=== PATIENT | male | born 1970 | race Caucasian/White ===

== ENCOUNTER 2023-07-01 07:43 | Outpatient (OUT) | payer BC, SELFPAY ==
[2023-07-01 08:08] LABS: Bilirubin Urine NEGATIVE (NEGATIVE); Blood Urine NEGATIVE (NEGATIVE); Clarity Urine CLEAR (CLEAR); Color Urine YELLOW (YELLOW); Glucose Urine UA NEGATIVE (NEGATIVE); Ketones Urine NEGATIVE (NEGATIVE); Leukocyte Esterase Urine NEGATIVE (NEGATIVE); Nitrite Urine NEGATIVE (NEGATIVE); Protein Urine NEGATIVE (NEG/TRACE); Specific Gravity Urine >=1.030 (1.005-1.025); Urobilinogen Urine 0.2 EU/dL (0.2-1.0)
[2023-07-01 08:11] LABS: Basophils Absolute Auto 0.1 10^3/uL (0.0-0.1); Basophils Percent Auto 0.9 % (0.2-2.0); Eosinophils Absolute Auto 0.2 10^3/uL (0.0-0.7); Eosinophils Percent Auto 2.6 % (0.9-7.0); Hematocrit 47.6 % (42.0-54.0); Hemoglobin 15.4 g/dL (14.0-18.0); Immature Granulocytes Abs Auto 0.14 10^3/uL (0.00-0.03); Immature Granulocytes Pct Auto 2.5 % (0.0-0.5); Lymphocytes Absolute Auto 1.9 10^3/uL (1.2-3.8); Lymphocytes Percent Auto 34.2 % (20.5-60.0); Mean Corpuscular HGB Conc 32.4 g/dL (29.9-35.2); Mean Corpuscular Hemoglobin 29.9 pg (25.9-34.0); Mean Corpuscular Volume 92.4 fL (80.0-94.0); Mean Platelet Volume 9.6 fL (9.5-13.5); Monocytes Absolute Auto 0.5 10^3/uL (0.3-0.8); Monocytes Percent Auto 8.8 % (1.7-12.0); Neutrophils Absolute Auto 2.9 10^3/uL (1.4-6.5); Platelet Count 219 10^3/uL (150-450); Red Blood Count 5.15 10^6/uL (4.70-6.10); Red Cell Distribution Width 13.3 % (11.0-15.0); White Blood Count 5.7 10^3/uL (4.0-11.0)
[2023-07-01 08:56] LABS: Urine Microscopic Indicated NO
[2023-07-01 09:37] LABS: Alanine Aminotransferase 36 U/L (16-63); Albumin Level 3.5 g/dL (3.4-5.0); Alkaline Phosphatase 90 U/L (46-116); Anion Gap 10.4; Aspartate Amino Transferase 17 U/L (15-37); BUN Creatinine Ratio 8.9; Bilirubin Total 0.5 mg/dL (0.2-1.0); Calcium 9.3 mg/dL (8.5-10.1); Carbon Dioxide 28.6 mmol/L (21.0-32.0); Chloride 106 mmol/L (98-107); Chol HDL Ratio 5.4; Cholesterol 233 mg/dL (<=200); Estimated GFR (African America >60 (>=60); Estimated GFR (Non-African Ame >60 (>=60); Globulin 3.4 g/dL; Glucose 98 mg/dL (74-106); HDL Cholesterol 43 mg/dL (40-60); Sodium 141 mmol/L (136-145); Thyroid Stimulating Hormone 1.928 uIU/mL (0.358-3.740); Total Protein 6.9 g/dL (6.4-8.2); Triglycerides 132 mg/dL (<=150); VLDL CHOLESTEROL 26.4 mg/dL
[2023-07-01 09:38] LABS: Free T4 0.85 ng/dL (0.76-1.46)
[2023-07-01 10:45] LABS: Prostate Specific Antigen Scrn 1.03 ng/mL (<=4.00)
== END 2023-07-01 07:44 | disposition home or self-care (01) ==
LOC: LAB 07:46
PROVIDERS: PCP Nurse Practitioner; Visit Provider Nurse Practitioner
DX: Z00.00 Encounter for general adult medical examination without abnormal findings (principal); Z12.5 Encounter for screening for malignant neoplasm of prostate
CPT/HCPCS: 36415; 80053; 80061; 81003; 84439; 84443; 85025; G0103

== ENCOUNTER 2023-08-17 11:08 | Outpatient (OUT) | payer BC, SELFPAY ==
--- OUTSIDE RECORDS SUMMARY | 2023-08-17 11:11 | XMS_ITS ---
Patient Summarization (C-CDA 2.1 CCD) Created on: August 17, 2023 DONA VELEZ : 1970 Sex: Male Author Organization Sample organization Care Team Providers Care Circular Sawyer Helper Name Role Phone Rayray Mitchell Admitting Unavailable Paula, Rayray Attending Unavailable John Arzate Primary Care Unavailable Paula, Rayray Admitting Unavailable Mitchell, Rayray Attending Unavailable Huey, John Primary Care Unavailable Ning Candelario Unavailable REQUEST, DR NONE LISTED Primary Care Unavaila justine ARRINGTON, DR HORTENSIA Thompson Consulting Unavailable MAURICIO, CALI Attending Unavailable MAURICIO, CALI Admitting Unavailable MAURICIOCALI DUMONT Consulting Unavailable AICHFLORA, KATHIA Attending Unavailable AICHFLORA, KATHIA Attending Unavailable RUCHI CHRISTINE Attending Unavailable Allergies Allergy Classification Reported Allergen(s) Allergy Type Date of Onset Reaction(s) Facility (1 source) levoFLOXacin Drug Allergy 9 [facility] Repository (1 source) Meperidine Drug Allergy vomiting [facility] Other (1 source) levoFLOXacin Drug Allergy [facility] Repository Encounters Encounter Date Encounter Type Care Provider Facility Start: 07-28-2023 End: 07-28-2023 ambulatory RUCHI CHRISTINE Not Available Start: 07-27-2023 End: 07-27-2023 ambulatory KATHIA AICHHOLZ Not Available Start: 06-30-2023 End: 06-30-2023 ambulatory KATHIA AICHHOLZ Not Available Start: 05-27-2022 End: 05-28-2022 ambulatory NONE LISTED REQUEST Facility: Start: 02-18-2021 End: 02-18-2021 ambulatory Ning Candelario Other [facility] Other Start: 02-18-2021 Office outpatient visit 15 minutes Ning Candelario [facility] [place] Start: 05-05-2018 End: 05-05-2018 Patient encounter procedure Rayray Mitchell Facility:[facility] Start: 04-19-2018 End: 04-19-2018 Patient encounter procedure Rayray Mitchell Facility:[facility] Medications Current Medications Medication Drug Class(es) Dates Sig (Normalized) Sig (Original) Esomeprazole (1 source) Proton Pump Inhibitor NexIUM Active methylPREDNISolone 4 mg oral tablet (1 source) Corticosteroid Start: methylPREDNISolone 4 MG as directed Orally Once a day for 6 days Jan, Active Payers Date Payer Category Payer Unknown [id number] 2018 Unknown [id number] 1970 Unknown [id number] 2.16.84 [id number] 1970 Unknown [id number] 2.16.84 [id number] 1970 Unknown [id number] 2.16.84 [id number] 1959 Self-pay [facility] [id number] Unknown [id number] Unknown [id number] Unknown [id number] 2.16.84 [id number] Problems Active Problems Problem Classification Problem Date Documented Da te Episodic/Chronic Administrative/social admission (4 sources) Encounter for pre-employment examination; Translations: [ENCOUNTER FOR PRE-EMPLOYMENT EXAM] Onset: 05-27-2022 Episodic Unclassified (1 source) N20.1 - Calculus of ureter; Translations: [N20.1 - Calculus of ureter] Onset: 04-19-2018 Past or Other Problems Problem Classification Problem Date Documented Da te Episodic/Chronic Chronic obstructive pulmonary disease and bronchiectasis (1 source) Bronchitis, not specified as acute or chronic Onset: 02-18-2021 Resolved: 02-18-2021 Episodic Immunizations and screening for infectious disease (1 source) Contact with and (suspected) exposure to other viral communicable diseases Onset: 02-18-2021 Resolved: 02-18-2021 Episodic Viral infection (1 source) COVID-19 Onset: 02-18-2021 Resolved: 02-18-2021 Results Test Name Value Interpretation Reference Range Facil ity XR CHEST 2 Von 05-27-2022 XR CHEST 2 V EXAMINATION: XR CHES T 2 V HISTORY: Pre-employment screening COMPARISON: No relevant comparison available. TECHNIQUE: PA and lateral FINDINGS: LUNGS: No significant pulmonary parenchymal abnormalities. VASCULATURE: No increased pulmonary vasculature. PLEURA: No pneumothorax, effusion, or pleural thickening. CARDIAC: No cardiomegaly or cardiac silhouette abnormality. MEDIASTINUM: No visible mass or adenopathy. BONES: No fracture or visible bone lesion. OTHER: Negative. IMPRESSION: No acute disease. Electronically authenticated by: HORTENSIA ARRINGTON Date: 2022-05-27 14:12 Normal [facility] Calculi, Urinaryon 9 Ca Oxalate Dihydrate 30 % Normal . [facility] Comment on above: Performed By: #### C ALCULI #### [facility] , Ca Oxalate Monohydrate 65 % Normal . [facility] Comment on above: Performed By: #### C ALCULI #### [facility] , Calcium Phosphate 05 % Normal . [facility] Comment on above: Performed By: #### C ALCULI #### [facility] , Color Nom (U) Bautista Normal . [facility] Comment on above: Performed By: #### C ALCULI #### [facility] , Comment2 Note: Normal . [facility] Comment on above: Result Comment: Plea se do not submit specimens on Q-Tips, in tape, on filters, or in liquids such as blood, urine or formalin. This may cause unnecessary biohazards, erroneous results and/or delay in the processing of the specimen. Performed By: #### C ALCULI #### [facility] , Comment: Normal . [facility] Comment on above: Result Comment: Phys mitra questions regarding Calculi Analysis contact [facility] at: [phone]. Performed By: #### C ALCULI #### [facility] , Composition Normal . [facility] Comment on above: Result Comment: Perc entage (Represents the % composition) Performed By: #### C ALCULI #### [facility] , Nidus No Nidus visualized Normal . [facility] Comment on above: Performed By: #### C ALCULI #### [facility] , Note Normal . [facility] Comment on above: Result Comment: This test was developed and its performance characteristics determined by [facility]. It has not been cleared or approved by the Food and Drug Administration. Performed at: [address] [id number] Customer Pricing Manager: Rebecca Salas MD, Phone: [phone] PERFORMED BY: [place] [id number] PATHOLOGIST SHOP TAILOR APPRENTICE ALESSANDRO FUENTES M.D. Performed By: #### C ALCULI #### [facility] , Result Comment: Calc amy report with photograph will follow via computer, mail or roller hand delivery. Photo Normal . [facility] Comment on above: Result Comment: Phot ograph will follow under separate cover. Performed By: #### C ALCULI #### [facility] , Size Normal . [facility] Comment on above: Result Comment: Spec imen received as fragments. Performed By: #### C ALCULI #### [facility] , ECG 12 lead ECGon 04-19-2018 ECG 12 lead ECG [facility] Main [address] [address] Electrocardiograph Report Signed Patient: Dona Velez JR MR#: [id number] : 1970 Acct:[id number] Age/Sex: 47 / M ADM Date: 04/19/18 Loc: IN Room: Type: [facility] Attending Dr: Rayray Mitchell MD Ordering Provider: Rajesh Valderrama DO Date of Service: 04/19/18 ECG/ECG 12 lead ECG: preop Copies to: Test Reason : Blood Pressure : / mmHG Vent. Rate : 058 BPM Atrial Rate : 058 BPM P-R Int : 142 ms QRS Dur : 094 ms QT Int : 394 ms P-R-T Axes : 054 063 048 degrees QTc Int : 386 ms Sinus bradycardia Otherwise normal ECG No previous ECGs available Confirmed by AMBER CASTRO MD ([id number]) on 04/19/2018 1:13:52 PM Referred By: Electronically Signed By:AMBER CASTRO MD Transcribed By: MUS Dictated By: Amber Castro MD 04/19/18 1007 Signed By: 04/19/18 1313 [facility] Matt 04-19-2018 L - -------- Specimen: [id number] Received: 04/20/18 Status: TERRI Greenduarte Num: [id number] Spec Type: Surgical Subm Dr: Rayray Mitchell MD Tissues: A Urinary Calculus (KID STONE) Procedures: Level 1 Gross -------- Patient Age/Sex Location Account Attending Physician -------- AgustinDona fontana 47/M [place] [id number] Rayray Mitchell MD -------- SPEC NUM: [id number] RECD: 04/20/18 STATUS: TERRI LISA NUM: [id number] MICHELLE: 04/19/18 [facility] DR: Rayray Mitchell MD ENTERED: 04/20/[address] [facility] [address]: DANNY TYPE: Surgical DEPT: S ENTERED BY: [id number] RECV BY: [id number] ORDERED: Level 1 Gross ORDERED: Level 1 Gross Pathological Diagnosis Kidney stone, extraction: Consistent with calculi (see gross description). Specimen Clinical Information Left kidney stone; cysto, retro, laser, stent Gross Received fresh, labeled with the patient's name, number, and kidney stones are multiple bautista stone fragments ranging from less than 0.1 to 0.4 cm. No sections are submitted for microscopic evaluation. Gross exam only. The specimen is sent for stone analysis. (AUGUSTO/CHRISTINA/mery) Microscopic Gross exam only. 366[address] A. Urinary Calculu - KID STONE -------- -------- Specimen: [id number] Received: 04/20/18 Status: TERRI Lisa Num: [id number] Spec Type: Surgical Subm Dr: Rayray Mitchell MD Tissues: A Urinary Calculus (KID STONE) Procedures: Level 1 Gross -------- Patient: Dona Velez JR [id number] (Continued) -------- Signed (signature on file) Alessandro Fuentes MD 04/21/18 0947 [facility] Coding Summary.on 12-01-2017 Coding Summary. CODING DATE: 12/01/2017 [facility] STATUS: Home (Routine DC) PAYOR: [facility] [place] [facility] DESCRIPTION 5373 Level 3 Urology and Related Services ADMIT DX: REASON FOR VISIT DX: Z46.6 Encounter for fitting and adjustment of urinary device FINAL DX: PRINCIPAL: Z46.6 Encounter for fitting and adjustment of urinary device SECONDARY: Z87.442 Personal history of urinary calculi PYMT PROC APC STAT DESCRIPTION DOCTOR NAME DATE NOTE: The code number assigned matches the documented diagnosis and / or procedure in the patient's chart. However, the narrative phrase printed from the coding software may appear abbreviated, or result in slightly different terminology. Coded By: Saba Burrows Date Saved: 12/01/2017 01:45 pm [facility] Main OR Intraoperative Recor don 11-30-2017 Main OR Intraoperative Record IntraOp Document Type FTURO Summary Primary Physician: Rayray Mitchell MD Finalized Date/Time: 11/30/17 07:35:59 Pt. Name: DONA VELEZ Jr Dragan Stewart/Sex: 1970 Male Med Rec #: [id number] Physician: Rayray Mitchell MD Financial #: [id number] Pt. Type: O Room/Bed: / Admit/Disch: 11/30/17 06:54:27 - Institution: Case Times FTURO Entry 1 Patient Times In Room 11/30/17 07:25:00 Out Room 11/30/17 07:39:00 Procedure Times Start 11/30/17 07:30:00 Stop 11/30/17 07:37:00 Anesthesia Times Last Modified By: Jessica MCGOVERN, Irlanda LEROY 11/30/17 07:35:33 Case Attendance FTURO Entry 1 Entry 2 Entry 3 Case Attendee Paula GONZALES, Rayray Lopez RN, PATRICIAOR, Christianne MARCELINO, Linnea Fournier Role Performed Surgeon - Primary Bar Manager - Primary Scrub - Primary Time In 11/30/17 07:25:00 11/30/17 07:25:00 11/30/17 07:25:00 Time Out 11/30/17 07:39:00 11/30/17 07:39:00 11/30/17 07:39:00 Procedure CYSTOSCOPY LOCAL WITH CYSTOSCOPY LOCAL WITH CYSTOSCOPY LOCAL WITH STENT REMOVAL(Right) STENT REMOVAL(Right) STENT REMOVAL(Right) Comments Last Modified By: Jessica RN, CNOR, Jessica RN, PATRICIAOR, Jessica RN, PATRICIAOR, Irlanda 11/30/17 Irlanda 11/30/17 Irlanda 11/30/17 07:35:35 07:35:35 07:35:35 Surgical Procedures FTURO Entry 1 Procedure Description Procedure CYSTOSCOPY LOCAL WITH Modifiers Right STENT REMOVAL Surgeon Description CYSTO RIGHT STENT REMOVAL Primary Procedure Yes Primary Surgeon Rayray Mitchell MD Start 11/30/17 07:30:00 Stop 11/30/17 07:37:00 Anesthesia Type Local Surgical Service Urology Wound Class 2 - Clean-Contaminated Last Modified By: Jessica MCGOVERN, PATRICIAORIrlanda 11/30/17 07:35:37 General Case Data FTURO Pre-Care Text: Classifies surgical wound, implements aseptic technique, initiates traffic control Entry 1 Case Information OR URO 1 FT Case Level None Wound Class 2 - Clean-Contaminated Specialty Urology Preop Diagnosis S/P RIGHT STENT Postop Same As Preop Yes PLACEMENT Postop Diagnosis S/P RIGHT STENT Outcomes Met? Yes PLACEMENT Last Modified By: RAD Lopez RN, Ruthann 11/30/17 06:48:46 Post-Care Text: The patient is free from signs and symptoms of infection EU IntraOp - FTURO Pre-Care Text: Implements protective measures prior to operative or invasive procedure, confirms identity before the operative or invasive procedure, verifies operative procedure, surgical site, and laterality Entry 1 EU Perioperative Protocols Procedure(s) CYSTOSCOPY LOCAL WITH Patient Identity Birthday, ID Band STENT REMOVAL(Right) Verified (select at Check, Patient least 2): Participation Consents / H and P HandP, Surgery/Procedure Operative Site N/A Verified Consent Marking Verified Surgical Site Yes Laterality Verified Yes Verified Procedure Verified Yes Correct Patient Yes Position Verified Availability Equipment, Medication Time Out Rayray Mitchell MD, Verified (If Participants Jessica MCGOVERN, RAD, Applicable) Christianne Fournier CST, Linnea Time Out Complete 11/30/17 07:29:00 Allergies Reviewed? Yes Allergies Reviewed Self/Patient With Body Position Supine Prep Area penis Prep Agents Betadine Solution Skin. Condition Unable to Visualize Additional None Specimens Collected Vitals - EU Blood Pressure Pulse Respirations SPO2 EBL 0 IandO - EU Total Intake 0 mL Total Output 0 mL Outcomes Met? Yes Last Modified By: RAD Lopez RN, Ruthann 11/30/17 07:35:18 Post-Care Text: The patient is free from signs and symptoms of injury caused by extraneous objects Case Comments Finalized By: RAD Lopez RN, Ruthann Document Signatures Signed By: RAD Lopez RN, Ruthann 11/30/17 07:35 RAD Lopez RN, Ruthann 11/30/17 07:35 Normal [facility] Main OR Preoperative Recordo n 11-30-2017 Main OR Preoperative Record Holding Area Document Type FTURO Summary Primary Physician: Rayray Mitchell MD Finalized Date/Time: 11/30/17 07:34:39 Pt. Name: DONA VELEZ Jr /Sex: 1970 Male Med Rec #: [id number] Physician: Rayray Mitchell MD Financial #: [id number] Pt. Type: O Room/Bed: / Admit/Disch: 11/30/17 06:54:27 - Institution: Case Times Holding FTURO Pre-Care Text: Verifies consent for planned procedure, identifies individual values and wishes concerning care, includes family members in perioperative teaching Secures patient's records' belongings, and valuables, maintains patient's dignity and privacy, and maintains patient confidentiality Entry 1 In Holding 11/30/17 07:13:00 Outcomes Met? Yes Last Modified By: Mickie Malave LPN 11/30/17 07:13:21 Post-Care Text: The patient participates in decisions affecting his or her perioperative plan of care The patient's right to privacy is maintained Surgery Checklist FTURO Entry 1 Patient Birthday, ID Band Procedure History and Physical, Identification: Check, Patient Verification: Surgical Consent, With Participation Patient NPO after Midnight: n/a Personal Items: Jewelry Personal Items wedding ring, chain Complaints of Pain: Yes Comment: Pain Comment: left flank 03/03 Skin Integrity Intact, [place], Warm, & Dry Vitals - EU Blood Pressure 141/92 Pulse 66 bpm Respirations 16 br/min SPO2 RN Reviewed Yes Last Modified By: RAD Lopez RN, Ruthann 11/30/17 07:34:35 Finalized By: RAD Lopez RN, Ruthann Document Signatures Signed By: Mickie Malave LPN 11/30/17 07:16 RAD Lopez RN, Ruthann 11/30/17 07:34 Normal [facility] Operative Reporton 8 Operative Report Patient: DONA VELEZ Jr Age: 46 years Sex: Male : 1970 Associated Diagnoses: None Author: Rayray Mitchell MD Procedure Operative Information Details: Date/ Time: 11/30/17 07:37:00. Pre-Op Dx: Foreign Body in Bladder - T19.1XXA. Post-Op Dx: Same. Anesthesia Type: Local. Procedure: Local Cystoscopy with Stent Removal. Complications: None. Risks/Benefits/Inform ed Consent: Surgical risks, benefits, details of the procedure have been explained to the patient, Full informed consent has been obtained. Intraoperative Information Prepped: The patient was placed in supine position, The patient was prepped with the Betadine solution. Anesthesia: 2% Xylocaine Jelly per urethra. Procedure: Cystoscopy and Right Stent Removal, The flexible Cystoscope was passed in retrograde fashion into the bladder without difficulty, The bladder was viewed in entirety and found to be without tumors or stones, Mild inflammation was seen surrounding the orifice with the stent seen protruding from it, The stent was then grasped and removed in its entirety. Specimens Removed: None. Devices Implanted: None. Postoperative Information Discharge: The patient tolerated the procedure well and was subsequently discharged home. [facility] Comment on above: Result Comment: Elec tronically Signed By: Paula GONZALES, Rayray Israel.br\Date and Time Signed: 11/30/17 07:38 EDT Social History Date Type Detail Facility Unknown if ever smoked [facility] Other Sex Assigned At Sex Assigned At Bir th [facility] Other Vital Signs Date Time Vital Sign Value Performing Clinician Facility 02-18-2021 11:00-0500 Body height 185.42 cm Ning Candelario Other [facility] Other 02-18-2021 11:00-0500 Body mass index (BMI) [Ratio] 32.98 kg/m2 Ning Bartlettault Other [facility] Other 02-18-2021 11:00-0500 Body temperature 97.4 [degF] Ning Bartlettault Other [facility] Other 02-18-2021 11:00-0500 Body weight 113.4 kg Ning Bartlettault Other [facility] Other 12-28-2021 11:00-0500 SaO2% (BldA) [Mass fraction] 97 % Ning Candelario Other [facility] Other 04-19-2018 17:00-0500 Body weight Measured 14.4 Rayray [facility] Comment on above: Performed By: #### CALCULI #### [facility] , Evaluation note 02-18-2021 Note Date & Type Note Facility 02-18-2021 Evaluation note Encounter Date Diagnosis Assessment Notes Jan, Contact with and (suspected) exposure to other viral communicable diseases (ICD-10 - Z20.828) Jan, COVID-19 (ICD-10 - U07.1) Today you tested positive for the COVID virus. This mean you need to follow all CDC quarantine guidelines found at coronavirus.[place].gov. It is important to rest, increase fluids, and stay at home. Contact PCP and inform them of results. Medications like Mucinex, Cepacol, Tylenol, saline nasal spray are over the counter medications that can help with the symptoms. Current guidelines include staying home for at least 10 days, having no fever above 100.4 for 24 hours without medication and having significant improvement of symptoms before you are allowed to stop your quarantine. Contact primary care and ask for guidance is essential to follow up * EDUCATION HANDOUT GIVEN ON OTC TREATMENTS, FOLLOW UP AND WHEN TO SEEK EMERGENCY TREATMENT Jan, Bronchitis (ICD-10 - J40) Jan, Other Additional time spent conducting pre-visit phone call, screening for symptoms, instructions on social distancing, application and removal of PPE, and cleaning of examination room, equipment and supplies was preformed. Patient education given for testing methodology and results. Patient care instructions given in writting by [facility] At Home document. [facility] Other History general Narrative - Reported Note Date & Type Note Facility History general Narrative - Reported Type Medical History GERD [facility] Other Summary Purpose Family History No Family History Records FoundNo Family History Records FoundNo Family History Records FoundNo Family History Records Found Advance Directives No Advanced Directives Records FoundNo Advanced Directives Records FoundNo Advanced Directives Records FoundNo Advanced Directives Records Found Additional Source Comments (unrecognized sect ion and content) No Status Records FoundNo Status Records FoundNo Status Records FoundNo Status Records Found INFORMATION SOURCE (unrecogn ized section and content) DATE CREATED AUTHOR 05/19/2018 [facility] DATE CREATED AUTHOR AUTHOR'S ORGANIZ ATION 11/26/2018 [facility] DATE CREATED AUTHOR AUTHOR'S ORGANIZ ATION 06/06/2022 [facility] DATE CREATED AUTHOR AUTHOR'S ORGANIZ ATION 07/28/2023 [facility] dical Specialists EPIC REASON FOR VISIT (unrecogniz ed section and content) #5 BLACK CLARENCE FEVER, FATIGUE, SINUS CONGESTION, COVID Provider Visit FOR RECORDS PERTAINING TO PATIENTS WHO ARE OR HAVE BEEN ENROLLED IN A CHEMICAL DEPENDENCY/SUBSTANCEABUSE PROGRAM, SOME INFORMATION MAY BE OMITTED. This clinical summary was aggregated from multiple sources. Caution should be exercised in using it in the provision of clinical care. This summary normalizes information from multiple sources, and as a consequence, information in this document may materially change the coding, format and clinical context of patient data. In addition, data may be omitted in some cases. CLINICAL DECISIONS SHOULD BE BASED ON THE PRIMARY CLINICAL RECORDS. [facility] [employer] [facility]. provides no warranty or guarantee of the accuracy or completeness of information in this document.
== END 2023-08-17 11:09 | disposition home or self-care (01) ==
LOC: PST 11:08
PROVIDERS: PCP Nurse Practitioner; Visit Provider Surgery
DX: Z01.818 Encounter for other preprocedural examination (principal); Z12.11 Encounter for screening for malignant neoplasm of colon

== ENCOUNTER 2023-08-24 06:42 | Day surgery (SDC) | payer BC, SELFPAY ==
[2023-08-24] VITALS (7 sets, daily range): BP systolic 107–141; BP diastolic 62–90; PULSE 55–82; TEMP 36.3–36.4; O2SAT 94–98; BMI 32.9
--- OUTSIDE RECORDS SUMMARY | 2023-08-24 06:46 | XMS_ITS ---
Patient Summarization (C-CDA 2.1 CCD) Created on: August 24, 2023 DONA VELEZ : 1970 Sex: Male Author Organization Sample organization Care Team Providers Care Ribbon Winder Name Role Phone Rayray Mitchell Admitting Unavailable Paula, Rayray Attending Unavailable John Arzate Primary Care Unavailable Paula, Rayray Admitting Unavailable Imtchell, Rayray Attending Unavailable Huey, John Primary Care [...] Facility (1 source) levoFLOXacin Drug Allergy 9 [facility] Repository (1 source) Meperidine Drug Allergy vomiting [facility] Other (1 source) levoFLOXacin Drug Allergy [facility] Repository Encounters Encounter Date Encounter Type Care Provider Facility Start: 07-28-2023 End: 07-28-2023 ambulatory RUCHI CHRISTINE Not Available Start: 07-27-2023 End: 07-27-2023 ambulatory KATHIA AICHHOLZ Not Available Start: 06-30-2023 End: 06-30-2023 ambulatory KATHIA AICHHOLZ Not Available Start: 05-27-2022 End: 05-28-2022 ambulatory NONE LISTED REQUEST Facility: Start: 02-18-2021 End: 02-18-2021 ambulatory Ning Candelario Other [facility] Other Start: 02-18-2021 Office outpatient visit 15 minutes iNng Candelario [facility] [place] Start: 05-05-2018 End: 05-05-2018 Patient encounter procedure Rayray Mitchell Facility:[facility] Start: 04-19-2018 End: 04-19-2018 Patient encounter procedure Rayray Mitchell Facility:[facility] Medications Current Medications Medication Drug Class(es) Dates Sig (Normalized) Sig (Original) Esomeprazole (1 source) Proton Pump Inhibitor NexIUM Active methylPREDNISolone 4 mg oral tablet (1 source) Corticosteroid Start: methylPREDNISolone 4 MG as directed Orally Once a day for 6 days Jan, Active Payers Date Payer Category Payer Unknown [id number] 2018 Unknown [id number] 1970 Unknown [id number] 2.16.84 [id number] 1970 Unknown [id number] 2.16.84 [id number] 1970 Unknown [id number] 2.16.84 [id number] 1959 Self-pay [facility] [id number] Unknown [id number] Unknown [id number] Unknown [id number] 2.16.84 [id number] Problems Active Problems Problem Classification Problem Date [...] [place] Date: 2022-05-27 14:12 Normal [facility] Calculi, Urinaryon 9 Ca Oxalate Dihydrate 30 % Normal . [facility] Comment on above: Performed By: #### C ALCULI #### [facility] , Ca Oxalate Monohydrate 65 % Normal . [facility] Comment on above: Performed By: #### C ALCULI #### [facility] , Calcium Phosphate 05 % Normal . [facility] Comment on above: Performed By: #### C ALCULI #### [facility] , Color Nom (U) Bautista Normal . [facility] Comment on above: Performed By: #### C ALCULI #### [facility] , Comment2 Note: Normal . [facility] Comment on above: Result Comment: Plea se do not submit specimens on Q-Tips, in tape, on filters, or in liquids such as blood, urine or formalin. This may cause unnecessary biohazards, erroneous results and/or delay in the processing of the specimen. Performed By: #### C ALCULI #### [facility] , Comment: Normal . [facility] Comment on above: Result Comment: Phys mitra questions regarding Calculi Analysis contact [facility] at: [phone]. Performed By: #### C ALCULI #### [facility] , Composition Normal . [facility] Comment on above: Result Comment: Perc entage (Represents the % composition) Performed By: #### C ALCULI #### [facility] , Nidus No Nidus visualized Normal . [facility] Comment on above: Performed By: #### C ALCULI #### [facility] , Note Normal . [facility] Comment on above: Result Comment: This test was developed and its performance characteristics determined by [facility]. It has not been cleared or approved by the Food and Drug Administration. Performed at: [address] [id number] [employer] Pourer: Rebecca Salas MD, Phone: [phone] PERFORMED BY: [place]A [place] [id number] PATHOLOGIST TECHNICAL STAFF ENGINEER ALESSANDRO FUENTES M.D. Performed By: #### C ALCULI #### [facility] , Result Comment: Calc amy report with photograph will follow via computer, mail or fur matcher delivery. Photo Normal . [facility] Comment on above: Result Comment: Phot ograph will follow under separate cover. Performed By: #### C ALCULI #### [facility] , Size Normal . [facility] Comment on above: Result Comment: Spec imen received as fragments. Performed By: #### C ALCULI #### [facility] , ECG 12 lead ECGon 04-19-2018 ECG 12 lead ECG [facility] Main [address] [address] Electrocardiograph Report Signed Patient: Dona Velez JR MR#: [id number] : 1970 Acct:[id number] Age/Sex: 47 / M ADM Date: 04/19/18 Loc: [place] Room: Type: [facility] Attending Dr: Rayray Mitchell MD Ordering Provider: [...] MD 04/19/18 1007 Signed By: 04/19/18 1313 [facility] Matt 04-19-2018 L - -------- Specimen: [id number] Received: 04/20/18 Status: TERRI Greenduarte Num: [id number] Spec Type: Surgical Subm Dr: Rayray Mitchell MD Tissues: A Urinary Calculus (KID STONE) Procedures: Level 1 Gross -------- Patient Age/Sex Location Account Attending Physician -------- AgustinDona fontana 47/M [place] [id number] Rayray Mitchell MD -------- SPEC NUM: [id number] RECD: 04/20/18 STATUS: TERRI LISA NUM: [id number] MICHELLE: 04/19/[address] [facility] [address]: Rayray Mitchell MD ENTERED: 04/20/[address] [facility] [address]: DANNY TYPE: Surgical DEPT: S ENTERED BY: [id number] RECV BY: [id number] ORDERED: Level 1 Gross ORDERED: Level 1 [...] stone analysis. (AUGUSTO/CHRISTINA/mery) Microscopic Gross exam only. [address] A. Urinary Calculu - KID STONE -------- -------- Specimen: [id number] Received: 04/20/18 Status: TERRI Lisa Num: [id number] Spec Type: Surgical Subm Dr: Rayray Mitchell MD Tissues: A Urinary Calculus (KID STONE) Procedures: Level 1 Gross -------- Patient: Dona Velez JR [id number] (Continued) -------- Signed (signature on file) Alessandro Fuentes MD 04/21/18 0947 [facility] Coding Summary.on 12-01-2017 Coding Summary. CODING DATE: 12/01/2017 [facility] STATUS: Home (Routine DC) PAYOR: [facility] DESCRIPTION 5373 Level 3 Urology and [...] Saba Burrows Date Saved: 12/01/2017 01:45 pm [facility] Main OR Intraoperative Recor don 11-30-2017 Main OR Intraoperative Record IntraOp Document Type FTURO Summary Primary Physician: Rayray Mitchell MD Finalized Date/Time: 11/30/17 07:35:59 Pt. Name: DONA VELEZ Jr Dragan Stewart/Sex: 1970 Male Med Rec #: [id number] Physician: Rayray Mitchell MD Financial #: [id number] Pt. Type: O Room/Bed: / Admit/Disch: 11/30/17 [...] Linnea Fournier Role Performed Surgeon - Primary Manager Sustainability - Primary Scrub - Primary Time In [...] RAD Lopez RN, Ruthann 11/30/17 07:35 Normal [facility] Main OR Preoperative Recordo n 11-30-2017 Main OR Preoperative Record Holding Area Document Type FTURO Summary Primary Physician: Rayray Mitchell MD Finalized Date/Time: 11/30/17 07:34:39 Pt. Name: DONA VELEZ Jr /Sex: 1970 Male Med Rec #: [id number] Physician: Rayray Mitchell MD Financial #: [id number] Pt. Type: O Room/Bed: / Admit/Disch: 11/30/17 06:54:27 - Institution: Case Times Holding FTURO Pre-Care Text: Verifies consent for planned procedure, identifies individual values and wishes concerning care, includes family members in perioperative teaching Secures patient's records' belongings, and valuables, maintains patient's dignity and privacy, and maintains patient confidentiality Entry 1 In Holding 11/30/17 07:13:00 Outcomes Met? Yes Last Modified By: Mickie Malvae LPN 11/30/17 07:13:21 Post-Care Text: The patient [...] Comment: left flank 03/03 Skin Integrity Intact, [place], Warm, & Dry Vitals - EU Blood Pressure 141/92 Pulse 66 bpm Respirations 16 br/min SPO2 RN Reviewed Yes Last Modified By: RAD Lopez RN, Ruthann 11/30/17 07:34:35 Finalized By: RAD Lopez RN, Ruthann Document Signatures Signed By: Mickie Malave LPN 11/30/17 07:16 RAD Lopez RN, Ruthann 11/30/17 07:34 Normal [facility] Operative Reporton 8 Operative Report Patient: DONA [...] procedure well and was subsequently discharged home. [facility] Comment on above: Result Comment: Elec tronically Signed By: Paula GONZALES, Rayray Israel.br\Date and Time Signed: 11/30/17 07:38 EDT Social History Date Type Detail Facility Unknown if ever smoked [facility] Other Sex Assigned At Sex Assigned At Bir th [facility] Other Vital Signs Date Time Vital Sign Value Performing Clinician Facility 02-18-2021 11:00-0500 Body height 185.42 cm Ning Candelario Other [facility] Other 02-18-2021 11:00-0500 Body mass index (BMI) [Ratio] 32.98 kg/m2 Ning [facility] Other [facility] Other 02-18-2021 11:00-0500 Body temperature 97.4 [degF] Ning [facility] Other [facility] Other 02-18-2021 11:00-0500 Body weight 113.4 kg Ning [facility] Other [facility] Other 12-28-2021 11:00-0500 SaO2% (BldA) [Mass fraction] 97 % Ning Candelario Other [facility] Other 04-19-2018 17:00-0500 Body weight Measured 14.4 Rayray [facility] Comment on above: Performed By: #### [...] Patient care instructions given in writting by [facility] Care At Home document. [facility] Other History general Narrative - Reported Note Date & Type Note Facility History general Narrative - Reported Type Medical History GERD [facility] Other Summary Purpose Family History No Family [...] section and content) DATE CREATED AUTHOR 05/19/2018 [facility] DATE CREATED AUTHOR AUTHOR'S ORGANIZ ATION 11/26/2018 Chino Milner [facility] DATE CREATED AUTHOR AUTHOR'S ORGANIZ ATION 06/06/2022 [facility] DATE CREATED AUTHOR AUTHOR'S ORGANIZ ATION 07/28/[address] [facility] EPIC REASON FOR VISIT (unrecogniz [...] BE BASED ON THE PRIMARY CLINICAL RECORDS. [facility]. provides no warranty or guarantee of the accuracy or completeness of information in this document.
[2023-08-24] MEDS: LACTATED RINGER'S SOLUTION 1,000 ML 50 ML IV ×2 (07:08→08:42)
--- NOTE | 2023-08-24 07:51 | W.PM.PROCNOT ---
Date of procedure: 08/24/23 Pre-op diagnosis: screening colonoscopy Post-op diagnosis: other (sigmoid polypectomies x2 and biopsy x1) Procedure: Previous colonoscopy: procedure: screening colonoscopy The patient was given IV conscious sedation.? The patient's SPO2 remained above 90% throughout the procedure. The colonoscope was inserted per rectum and advanced under direct vision to the cecum without difficulty.? The prep was good.? Findings: Terminal ileum os: normal Cecum/Ascending colon: normal Transverse colon: normal Descending/Sigmoid colon: polypectomy with hot snare at 10 cm and 30cm with removal of subcentimeter polyp at each site, cold forcep biopsy of subcentimeter polyp at 25cm Rectum/Anus: examined in normal and retroflexed positions and was normal Withdrawal Time was (minutes): 20 The colon was decompressed and the scope was removed.? The patient tolerated the procedure well. Recommendations/Plan: 1.? Lifestyle and dietary modifications as discussed 2.? F/U Biopsies 3.? F/U in 10 days in clinic 4.? Discussed with the family Anesthesia: MAC Surgeon: Ashutosh Cruz Estimated blood loss (mL): 3 Pathology: other (polyps ) Condition: stable Disposition: PACU
[2023-08-24] MEDS: ONDANSETRON PF 4 MG/2 ML VIAL IV (09:42)
--- NOTE | 2023-08-24 09:47 | PC.NURSE ---
PATIENT COMPLAINING OF NAUSEA. UPDATED DR JOEL GOT ORDER FOR ZOFRAN. ADMINISTERING AT THIS TIME
== END 2023-08-24 10:12 | disposition home or self-care (01) ==
PROVIDERS: PCP Nurse Practitioner; Visit Provider Surgery
PROC: (CPT 811; principal; 2023-08-24 08:00)
DX: Z12.11 Encounter for screening for malignant neoplasm of colon (principal); D12.5 Benign neoplasm of sigmoid colon; K63.5 Polyp of colon; K42.9 Umbilical hernia without obstruction or gangrene; K21.9 Gastro-esophageal reflux disease without esophagitis
CPT/HCPCS: 45380; 45385; 88305; J2405; J2704

== ENCOUNTER 2023-11-17 17:35 | Emergency (ER) | payer BC, SELFPAY ==
[2023-11-17] VITALS (13 sets, daily range): BP systolic 134–140; BP diastolic 93–99; PULSE 52–64; TEMP 36.9; O2SAT 94–100; BMI 32.9
--- OUTSIDE RECORDS SUMMARY | 2023-11-17 17:47 | XMS_ITS | CCD ---
Author Organization [facility] Care Team Providers Care Community Organization Director Name Role Phone [employer] Unavailable REQUEST, NONE LISTED Primary Care UnavailDR HORTENSIA Ward V Consulting Unavailable CALI MARTÍNEZ Attending Unavailable CALI MARTÍNEZ Admitting Unavailable CALI MARTÍNEZ Consulting Unavailable KATHIA XAVIER Attending Unavailable KATHIA XAVIER Attending Unavailable RUCHI CRUZ Attending Unavailable MD John Arzate Primary Care Provider DO Ruchi Cruz Attending Provider [phone] John Arzate Primary Care Unavailable Ruchi Cruz Attending Unavailable Ruchi Cruz Admitting Unavailable Allergies Allergy Classification Reported Allergen(s) Allergy Type Date of Onset Reaction(s) Facility (2 sources) Meperidine Drug Allergy 02-18-2021 [facility] (1 source) levoFLOXacin Drug Allergy [facility] Repository (2 sources) levoFLOXacin; Translations: [levofloxacin] Drug Allergy 04-19-2018 [facility] (1 source) Meperidine Drug Allergy 02-18-2021 [facility] Repository Medications Current Medications Medication Drug Class(es) Dates Sig (Normalized) Sig (Original) 24 hr alfuzosin hydrochloride 10 mg extended release oral tablet (1 source) alpha-Adrenergic Eliel Start: 04-19-2018 take 10 mg by mouth once daily Alfuzosin Active 10 MG PO Daily April 19, 2018 1:00am esomeprazole 20 mg delayed release oral tablet (2 sources) Proton Pump Inhibitor Start: 04-19-2018 take 1 tablet by mouth once daily Esomeprazole Magnesium (Nexium 24hr) 20 mg Tablet,Delayed Release (Dr/Ec) Active 20 MG PO Daily April 19, 2018 1:00am NexIUM Active finasteride 5 mg oral tablet (1 source) 5-alpha Reductase Inhibitor Start: 04-19-2018 take 5 mg by mouth once daily Finasteride Active 5 MG PO Daily April 19, 2018 1:00am hydroCHLOROthiazide 12.5 mg oral tablet (1 source) Thiazide Diuretic Start: 04-19-2018 take 12.5 mg by mouth once daily Hydrochlorothiazide Active 12.5 MG PO Daily April 19, 2018 1:00am ketorolac tromethamine 10 mg oral tablet (1 source) Nonsteroidal Anti-inflammatory Drug, Cyclooxygenase Inhibitor Start: 04-19-2018 take 10 mg by mouth four times daily Ketorolac Active 10 MG PO Four times daily April 19, 2018 1:00am methylPREDNISolone 4 mg oral tablet (1 source) Corticosteroid Start: 02-18-2021 methylPREDNISolone 4 MG as directed Orally Once a day for 6 days Jan, Active sulfamethoxazole 800 mg / trimethoprim 160 mg oral tablet (1 source) Dihydrofolate Reductase Inhibitor Antibacterial, Sulfonamide Antimicrobial Start: 04-19-2018 take 800 mg by mouth twice daily Sulfamethoxazole-Trime thoprim Active 800 MG PO Twice daily April 19, 2018 1:00am tamsulosin hydrochloride 0.4 mg oral capsule (1 source) alpha-Adrenergic Eliel Start: 04-27-2018 Tamsulosin Active April 27, 2018 1:00am Problems Active Problems Problem Classification Problem Date Documented Da te Episodic/Chronic Administrative/social admission (4 sources) Encounter for pre-employment examination; Translations: [ENCOUNTER FOR PRE-EMPLOYMENT EXAM] Onset: 05-27-2022 Episodic Past or Other Problems Problem Classification Problem [...] Name Value Interpretation Reference Range Facil ity Matt 08-24-2023 L Specimen: [id number] Received: 08/24/23 Status: TERRI Lisa Num: [id number] Spec Type: Surgical Subm Dr: Ruchi Cruz DO Tissues: A Colon Biopsy (SIGMOID POLYP 10 CM) B Colon Biopsy (SIG POLYP 30 CM) C Colon Biopsy (SIG POLYP 25 CM) Procedures: HE/6, Gross/Micro L4/3 Age/ Patient Sex Location Account Attending Physician Dona Velez JR 52/M [facility] [id number] Ruchi Cruz DO SPEC NUM: [id number] RECD: 08/24/23 STATUS: TERRI LISA NUM: [id number] MICHELLE: 08/24/23- SUBM DR: Ruchi Cruz DO ENTERED: 08/24/[address] [facility] [address]: Michael Hickman SPEC TYPE: Surgical DEPT: MAIA [place] ORDERED: HE/6, Gross/Micro L4/3 ORDERED: HE/6, Gross/Micro L4/3 Pathological Diagnosis A, sigmoid polyp at 10 cm biopsy: -Tubular adenoma B, sigmoid polyp at 30 cm biopsy: -Small hyperplastic polyp with incidentally superimposed mucosal lipomatosis C, sigmoid polyp biopsy at 25 cm: -Small hyperplastic polyp Clinical Information Sigmoid colon polyps Gross Description Received are 3 formalin filled containers each labeled with the patient's name, date of and specific specimen site. A. Further labeled 10 cm sigmoid polyp is a 0.3 x 0.3 x 0.2 cm bautista polypoid tissue fragment, entirely submitted in A1. B. Further labeled 30 cm sigmoid polyp is a 0.2 x 0.2 x 0.1 cm bautista polypoid tissue -------- Specimen: [id number] Received: 08/24/23 Status: TERRI Lisa Num: [id number] Spec Type: Surgical Subm Dr: Ruchi Cruz DO Tissues: A Colon Biopsy (SIGMOID POLYP 10 CM) B Colon Biopsy (SIG POLYP 30 CM) C Colon Biopsy (SIG POLYP 25 CM) Procedures: HE/6, Gross/Micro L4/3 -------- Patient: Dona Velez JR [id number] (Continued) -------- Specimen: [id number] Received: 08/24/23 (Continued) Gross Description (Continued) Signed (signature on file) Isaiah Burger MD 08/27/23 1843 -------- Specimen: [id number] Received: 08/24/23 Status: TERRI Lisa Num: [id number] Spec Type: Surgical Subm Dr: Ruchi Cruz DO Tissues: A Colon Biopsy (SIGMOID POLYP 10 CM) B Colon Biopsy (SIG POLYP 30 CM) C Colon Biopsy (SIG POLYP 25 CM) Procedures: Jasmin WALKER/Micro L4/3 -------- Patient: Dona Velez [id number] (Continued) -------- Specimen: [id number] Received: 08/24/23 (Continued) Gross Description (Continued) fragment, entirely submitted in B1. C. Further labeled 25 cm sigmoid polyp is a 0.3 x 0.2 x 0.2 cm bautista polypoid tissue fragment, entirely submitted in C1. CPT Codes 46879 X.3 -------- -------- Specimen: [id number] Received: 08/24/23 Status: TERRI Lisa Num: [id number] Spec Type: Surgical Subm Dr: Ruchi Cruz DO Tissues: A Colon Biopsy (SIGMOID POLYP 10 CM) B Colon Biopsy (SIG POLYP 30 CM) C Colon Biopsy (SIG POLYP 25 CM) Procedures: HE/6, Gross/Micro L4/3 -------- Patient: Dona Velez JR [id number] (Continued) -------- Signed (signature on file) Isaiah Burger MD 08/27/23 184 Normal [facility] XR CHEST 2 Von 05-27-2022 XR CHEST [...] by: HORTENSIA ARRINGTON Date: 2022-05-27 14:12 Normal [facility] Coding Summary.on 12-01-2017 Coding Summary. CODING DATE: 12/01/2017 FINAL [facility] STATUS: Home (Routine DC) PAYOR: [facility] [employer] DESCRIPTION 5373 Level 3 Urology and [...] result in slightly different terminology. Coded By: YashEpifanio fernandezanette Date Saved: 12/01/2017 01:45 pm Normal [facility] Main OR Intraoperative Recor don 11-30-2017 Main OR Intraoperative Record IntraOp Document Type FTURO Summary Primary Physician: Rayray Mitchell MD Finalized Date/Time: 11/30/17 07:35:59 Pt. Name: PAOLA RomeroDONA/Sex: 1970 Male Med Rec #: [id number] Physician: Rayray Mitchell MD Financial #: [id number] Pt. Type: O Room/Bed: / Admit/Disch: 11/30/17 06:54:27 - Institution: Case Times FTURO Entry 1 Patient Times In Room 11/30/17 07:25:00 Out Room 11/30/17 07:39:00 Procedure Times Start 11/30/17 07:30:00 Stop 11/30/17 07:37:00 Anesthesia Times Last Modified By: Jessica MCGOVERN, RAD, Irlanda 11/30/17 07:35:33 Case Attendance FTURO Entry 1 Entry 2 Entry 3 Case Attendee Paula GONZALES, Rayray Lopez RN, PATRICIAOR, Christianne MARCELINO, Linnea Fournier Role Performed Surgeon - Primary Freight Car Loader - Primary Scrub - Primary Time In 11/30/17 07:25:00 11/30/17 07:25:00 11/30/17 07:25:00 Time Out 11/30/17 07:39:00 11/30/17 07:39:00 11/30/17 07:39:00 Procedure CYSTOSCOPY LOCAL WITH CYSTOSCOPY LOCAL WITH CYSTOSCOPY LOCAL WITH STENT REMOVAL(Right) STENT REMOVAL(Right) STENT REMOVAL(Right) Comments Last Modified By: Jessica RN, CNOR, Jessica RN, PATRICIAOR, Jessica MCGOVERN, RAD, Irlanda 11/30/17 Irlanda 11/30/17 Irlanda 11/30/17 07:35:35 07:35:35 07:35:35 Surgical Procedures FTURO Entry 1 Procedure Description Procedure CYSTOSCOPY LOCAL WITH Modifiers Right STENT REMOVAL Surgeon Description CYSTO RIGHT STENT REMOVAL Primary Procedure Yes Primary Surgeon Rayray Mitchell MD Start 11/30/17 07:30:00 Stop 11/30/17 07:37:00 Anesthesia Type Local Surgical Service Urology Wound Class 2 - Clean-Contaminated Last Modified By: RAD Lopez RN, Ruthann 11/30/17 07:35:37 General Case Data FTURO Pre-Care [...] Out Rayray Mitchell MD, Verified (If Participants RAD Lopez RN, Applicable) Christianne Fournier CAR PARKER, Linnea Time Out Complete 11/30/17 07:29:00 Allergies [...] RAD Lopez RN, Ruthann 11/30/17 07:35 Normal [facility] Main OR Preoperative Recordo n 11-30-2017 Main OR Preoperative Record Holding Area Document Type FTURO Summary Primary Physician: Rayray Mitchell MD Finalized Date/Time: 11/30/17 07:34:39 Pt. Name: DONA VELEZ Jr /Sex: 1970 Male Med Rec #: [id number] Physician: Rayray Mitchell MD Financial #: [id number] Pt. Type: O Room/Bed: / Admit/Disch: 11/30/17 [...] Comment: left flank 03/03 Skin Integrity Intact, [place], Warm, & Dry Vitals - EU Blood Pressure 141/92 Pulse 66 bpm Respirations 16 br/min SPO2 RN Reviewed Yes Last Modified By: RAD Lopez RN, Ruthann 11/30/17 07:34:35 Finalized By: RAD Lopez RN, Ruthann Document Signatures Signed By: Mickie Malave LPN 11/30/17 07:16 RAD Lopez RN, Ruthann 11/30/17 07:34 Normal [facility] Operative Reporton 8 Operative Report Patient: DONA [...] procedure well and was subsequently discharged home. Normal [facility] Comment on above: Result Comment: Elec tronically Signed By: Paula GONZALES, Rayray Kennedy\.br\Date and Time Signed: 11/30/17 07:38 EDT Vital Signs Date Time Vital Sign Value Performing Clinician Facility 02-18-2021 11:00-0500 Body height 185.42 cm Ning Bartlettault Other [facility] Other 02-18-2021 11:00-0500 Body mass index (BMI) [Ratio] 32.98 kg/m2 Ning [facility] Other [facility] Other 02-18-2021 11:00-0500 Body temperature 97.4 [degF] [facility] Other [facility] Other 02-18-2021 11:00-0500 Body weight 113.4 kg Ning [facility] Other [facility] Other 02-18-2021 11:00-0500 SaO2% (BldA) [Mass fraction] 97 % Ning Candelario Other [facility] Other Encounters Encounter Date Encounter Type Care Provider Facility Start: 08-24-2023 End: 08-24-2023 ambulatory MD John Arzate Work Phone: [facility] Work Phone: Start: 08-24-2023 End: 08-24-2023 Departed Referred MD John Arzate Work Phone: [facility] Start: 07-28-2023 End: 07-28-2023 ambulatory RUCHI CRUZ Not Available Start: 07-27-2023 End: 07-27-2023 ambulatory KATHIA AICHHOLZ Not Available Start: 06-30-2023 End: 06-30-2023 ambulatory KATHIA AICHHOLZ Not Available Start: 05-27-2022 End: 05-28-[address] NONE LISTED REQUEST Facility: Start: 02-18-2021 End: 02-18-2021 ambulatory Ning Candelario Other [facility] Other Start: 02-18-2021 Office outpatient visit 15 minutes Ning Candelario [facility] Payers Date Payer Category Payer Unknown [id number] 1970 Unknown [id number] 1970 Unknown [id number] [id number] 1970 Unknown [id number] .[id number] [id number] 1959 Self-pay [employer] [facility] [id number] Unknown [id number] Unknown [facility] [id number] Unknown [id number] Social History Date Type Detail Facility Unknown if ever smoked [facility] Other Sex Assigned At Sex Assigned At Bir th [facility] Other Start: 04-19-2018 Tobacco smoking status NHIS Never smoked tobacco (finding) [facility] Start: 1970 Sex Assigned At Male [facility] Medical Equipment Procedure Code Equipment Code Equipment Origin al Text Equipment Identifier Dates Cystourethroscopy STENT CONTOUR 7FR X 22-30CM FDA Start: 04-19-2018 Evaluation note 02-18-2021 Note Date & Type [...] Patient care instructions given in writting by [facility] document. [facility] Other Evaluation note Note Date & Type Note Facility Evaluation note No assessment information availa [facility] Work Phone: History general Narrative - Reported Note Date & Type Note Facility History general Narrative - Reported Type Medical History GERD [facility] [employer] Other Summary Purpose Family History No Family History Records FoundNo Family History Records FoundNo Family History Records FoundNo Family History Records Found Advance Directives No Advanced Directives Records Found Advance Directive Response Recorded Date/ Time Advance Directives No March 5:22pm Additional Source Comments (unrecognized sect ion and content) No Status Records FoundNo Status Records FoundNo Status Records FoundNo Status Records Found INFORMATION SOURCE (unrecogn ized section and content) DATE CREATED AUTHOR 11/26/2018 [facility] DATE CREATED AUTHOR AUTHOR'S ORGANIZ ATION 06/06/2022 [facility] DATE CREATED AUTHOR AUTHOR'S ORGANIZ ATION 07/28/2023 [facility] EPIC DATE CREATED AUTHOR AUTHOR'S ORGANIZ ATION 08/28/[address] [facility] REASON FOR VISIT (unrecogniz ed section and content) #5 BLACK CLARENCE FEVER, FATIGUE, SINUS CONGESTION, COVID Provider Visit Care Teams (unrecognized sec tion and content) Team Status: Active Member Role Status Cam Arzate MD Primary Care Provider Active Team Status: Inactive Member Role Status Dates John Arzate MD Primary Care Provider Active Start: August 24, 2023 End: August 24, 2023 Ruchi Cruz DO Attending Provider Active Star t: August 24, 2023 End: August 24, 2023 Goals (unrecognized section and content) Goals may be documented in a n alternate section FOR RECORDS PERTAINING TO PATIENTS WHO ARE [...] BE BASED ON THE PRIMARY CLINICAL RECORDS. [facility]. provides no warranty or guarantee of the accuracy or completeness of information in this document.
--- NOTE | 2023-11-17 17:54 | ECG_ITS ---
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
[2023-11-17 18:00] LABS: Basophils Absolute Auto 0.1 10^3/uL (0.0-0.1); Eosinophils Absolute Auto 0.2 10^3/uL (0.0-0.7); Eosinophils Percent Auto 2.2 % (0.9-7.0); Hemoglobin 16.8 g/dL (14.0-18.0); Immature Granulocytes Abs Auto 0.17 10^3/uL (0.00-0.03); Immature Granulocytes Pct Auto 2.2 % (0.0-0.5); Lymphocytes Absolute Auto 1.9 10^3/uL (1.2-3.8); Lymphocytes Percent Auto 23.8 % (20.5-60.0); Mean Corpuscular HGB Conc 33.6 g/dL (29.9-35.2); Mean Corpuscular Hemoglobin 30.3 pg (25.9-34.0); Mean Corpuscular Volume 90.3 fL (80.0-94.0); Mean Platelet Volume 9.4 fL (9.5-13.5); Monocytes Absolute Auto 0.6 10^3/uL (0.3-0.8); Monocytes Percent Auto 7.7 % (1.7-12.0); Neutrophils Absolute Auto 4.9 10^3/uL (1.4-6.5); Neutrophils Percent Auto 63.1 % (43.0-75.0); Platelet Count 251 10^3/uL (150-450); Red Blood Count 5.54 10^6/uL (4.70-6.10); Red Cell Distribution Width 13.3 % (11.0-15.0); White Blood Count 7.8 10^3/uL (4.0-11.0)
--- NOTE | 2023-11-17 18:00 | XR_ITS ---
The [address] [address] Patient Name: DONA GUEVARA MRN: [id number] date: 1970 Sex: M Assigned Patient Location: ER Current Patient Location: ED.MAIN Accession/Order Number: [id number] Exam Date: 11/17/2023 17:55 Report Date: 11/17/2023 18:36 At the request of: BARBARA CORDOVA Procedure: XR chest 1V Exam: Radiographs: XR chest 1V, CT head/brain wo con Reason for exam: dizziness Comparison: Chest x-ray dated 05/27/2022 XR/XR chest 1V IMPRESSION: Unremarkable chest x-ray. EXAM: CT scan of the head without contrast. Dose reduction technique used: Automated exposure control and/or adjustment of the mA and/or kV according to patient size and/or use of iterative reconstruction technique. REASON FOR EXAM: dizziness COMPARISON: None FINDINGS: No intracranial hemorrhage, mass effect, midline shift, fractures or evidence of acute ischemic infarct. No hydrocephalus. Paranasal sinuses and mastoid air cells are clear. Remainder unremarkable. IMPRESSION: No acute intracranial abnormalities. Electronically authenticated by: ISIS RIOS Date: 11/17/2023 18:36
--- NOTE | 2023-11-17 18:03 | ED.GENADUL1 ---
HPI HPI - General Adult General Chief complaint: Dizziness Stated complaint: Vomiting Dizziness Time Seen by Provider: 11/17/23 17:46 Source: patient Mode of arrival: Wheelchair History of Present Illness HPI narrative: Patient presents to ED complaining of dizziness. He said he was fine all day today and he laid down for a little bit and when he stood back up he suddenly got dizzy. He said everything started to spin and he was nauseous and started vomiting. He said when he lays back down or sits still he is fine but once he stands up and starts moving around the room spins and he is very nauseous. He does not have any history of vertigo. He denies any chest pain or shortness of breath. No abdominal pain. Patient denies any history of cardiac issues. He does not have viral syndrome or upper respiratory infection. Denies any ear pain. No vision changes until the spinning starts happening and then he said the vision gets blurry and things are moving around. No other complaints at this time Related Data Home Medications ?Medication ?Instructions ?Recorded ?Confirmed famotidine 20 mg tablet (Pepcid) 20 mg PO DAILY 08/17/23 11/17/23 sertraline 50 mg tablet 50 mg PO DAILY 08/17/23 11/17/23 Previous Rx's ?Medication ?Instructions ?Recorded meclizine 25 mg tablet 25 mg PO TID PRN dizziness or 11/17/23 vertigo #20 tabs Allergies Allergy/AdvReac Type Severity Reaction Status Date / Time meperidine [From Demerol] AdvReac Vomiting Verified 08/24/23 06:50 Opioid HPI Opioid Management Most Recent Opioid Data: No Data to Display Review of Systems ROS Status of ROS 10 or more systems reviewed and unremarkable except as noted in history and below [facility] Medical History (Updated 11/17/23 @ 18:51 by Blanca Ventura DO) Anxiety ?F41.9 - Anxiety disorder, unspecified (ICD-10) Migraine ?G43.909 - Migraine, unspecified, not intractable, without status migrainosus (ICD-10) Kidney stones ?N20.0 - Calculus of kidney (ICD-10) GERD (gastroesophageal reflux disease) ?K21.9 - Gastro-esophageal reflux disease without esophagitis (ICD-10) Delayed recovery from anesthesia S/P extracorporeal shock wave therapy ?Z98.890 - Other specified postprocedural states (ICD-10) Surgical History (Updated 08/17/23 @ 11:12 by Hannah White NP) S/P cystoscopy ?Z98.890 - Other specified postprocedural states (ICD-10) S/P ureteral stent placement ?Z96.0 - Presence of urogenital implants (ICD-10) Family History (Updated 08/24/23 @ 06:57 by Mickie Willingham) Other Prostate cancer Social History (Updated 08/24/23 @ 06:57 by Mickie Willingham) Within the past year, how often did you have a drink containing alcohol: 2-3 times a week Smoking status: Never smoker Non-prescribed substance use: denies use 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 Cardiovascular: [Regular rate and rhythm, no murmur.] Respiratory: [Lungs are clear to auscultation, respirations are non-labored, breath sounds are equal.] Chest wall: [No tenderness, no deformity.] Gastrointestinal: [Soft, nontender, non distended, normal bowel sounds.] MSK: 5 out of 5 muscle strength x 4 extremities no calf pain or edema Lymphatics: [No lymphadenopathy.] Psychiatric: [Cooperative, appropriate mood & affect.] Neurological: [Alert and oriented to person, place, time, and situation, no focal neurological deficit observed.] Constitutional Vital Signs, click to edit/add: Last Vital Signs Temp 98.4 F 11/17/23 17:39 Pulse 57 L 11/17/23 19:10 Resp 7 L 11/17/23 19:10 BP 140/98 H 11/17/23 19:00 Pulse Ox 97 11/17/23 19:10 O2 Del Method Room Air 11/17/23 18:16 Course Vital Signs Vital signs: Vital Signs Temperature 98.4 F 11/17/23 17:39 Pulse Rate 54 L 11/17/23 17:39 Respiratory Rate 18 11/17/23 17:39 Blood Pressure 134/97 H 11/17/23 17:39 Pulse Oximetry 99 11/17/23 17:39 Oxygen Delivery Method Room Air 11/17/23 17:39 Temperature 98.4 F 11/17/23 17:39 Pulse Rate 57 L 11/17/23 19:10 Respiratory Rate 7 L 11/17/23 19:10 Blood Pressure 140/98 H 11/17/23 19:00 Pulse Oximetry 97 11/17/23 19:10 Oxygen Delivery Method Room Air 11/17/23 18:16 Medical Decision Making MDM Narrative Medical decision making narrative: Patient is feeling better after meclizine. He was able to stand and ambulate in the room and much better. Nausea was controlled with Zofran. Patient states he would like to go home. Prescription for meclizine was sent to his pharmacy. They are going out of town tomorrow. I told him if his symptoms worsen please get to the nearest hospital. Return to ED if worsening symptoms follow-up with family doctor Differential Diagnosis Differential Diagnosis: Stroke, vertigo, viral syndrome Lab Data Lab results reviewed: Yes I reviewed the patient's lab results Labs: Lab Results 11/17/23 11/17/23 Range/Units 17:55 18:11 WBC 7.8 (4.0-11.0) 10^3/uL RBC 5.54 (4.70-6.10) 10^6/uL Hgb 16.8 (14.0-18.0) g/dL Hct 50.0 (42.0-54.0) % MCV 90.3 (80.0-94.0) fL MCH 30.3 (25.9-34.0) pg MCHC 33.6 (29.9-35.2) g/dL RDW 13.3 (11.0-15.0) % Plt Count 251 (150-450) 10^3/uL MPV 9.4 L (9.5-13.5) fL Neut % (Auto) 63.1 (43.0-75.0) % Lymph % (Auto) 23.8 (20.5-60.0) % [place] % (Auto) 7.7 (1.7-12.0) % Eos % (Auto) 2.2 (0.9-7.0) % Baso % (Auto) 1.0 (0.2-2.0) % Neut # (Auto) 4.9 (1.4-6.5) 10^3/uL Lymph # (Auto) 1.9 (1.2-3.8) 10^3/uL [place] # (Auto) 0.6 (0.3-0.8) 10^3/uL Eos # (Auto) 0.2 (0.0-0.7) 10^3/uL Baso # (Auto) 0.1 (0.0-0.1) 10^3/uL Abs Immat Gran (auto) 0.17 H (0.00-0.03) 10^3/uL Imm/Tot Granulo (auto) 2.2 H (0.0-0.5) % Sodium 136 (136-145) mmol/L Potassium 3.9 (3.5-5.1) mmol/L Chloride 102 (98-107) mmol/L Carbon Dioxide 28.3 (21.0-32.0) mmol/L Anion Gap 9.6 BUN 15.0 (7.0-18.0) mg/dL Creatinine 1.19 (0.70-1.30) mg/dL Est GFR ( Amer) >60 (>=60) Est GFR (Non-Af Amer) >60 (>=60) BUN/Creatinine Ratio 12.6 Glucose 110 H (74-106) mg/dL Calcium 9.9 (8.5-10.1) mg/dL Total Bilirubin 0.5 (0.2-1.0) mg/dL AST 14 L (15-37) U/L ALT 35 (16-63) U/L Alkaline Phosphatase 104 (46-116) U/L Troponin I High Sens 5.1 (4.0-76.1) pg/mL Total Protein 7.6 (6.4-8.2) g/dL Albumin 4.0 (3.4-5.0) g/dL Globulin 3.6 g/dL Albumin/Globulin Ratio 1.1 SARS-CoV-2 Ag (CV2AG) Negative (NEGATIVE) Imaging Data CT scan - head: Radiologist's impression: ITS Impressions Chest X-Ray 11/17/23 18:00 IMPRESSION: Unremarkable chest x-ray. EXAM: CT scan of the head without contrast. Dose reduction technique used: Automated exposure control and/or adjustment of the mA and/or kV according to patient size and/or use of iterative reconstruction technique. REASON FOR EXAM: dizziness COMPARISON: None FINDINGS: No intracranial hemorrhage, mass effect, midline shift, fractures or evidence of acute ischemic infarct. No hydrocephalus. Paranasal sinuses and mastoid air cells are clear. Remainder unremarkable. IMPRESSION: No acute intracranial abnormalities. Electronically authenticated by: [facility] RIOS Date: 11/17/2023 18:[address] 11/17/23 18:24 IMPRESSION: Unremarkable chest x-ray. EXAM: CT scan of the head without contrast. Dose reduction technique used: Automated exposure control and/or adjustment of the mA and/or kV according to patient size and/or use of iterative reconstruction technique. REASON FOR EXAM: dizziness COMPARISON: None FINDINGS: No intracranial hemorrhage, mass effect, midline shift, fractures or evidence of acute ischemic infarct. No hydrocephalus. Paranasal sinuses and mastoid air cells are clear. Remainder unremarkable. IMPRESSION: No acute intracranial abnormalities. Electronically authenticated by: [employer] RIOS Date: 11/17/2023 18:36 ECG Data Attestation: I personally reviewed and interpreted this ECG as follows: Interpretation: EKG INTERPRETATION Time: []1747 Rate: []52 Rhythm: _ []Sinus bradycardia ST segments: _ []No acute ST elevation or depression T waves: _ [] Ectopy: _ [] P wave/AR interval: _ [] QRS interval: _ [] QT interval: _ [] Comparison: _ [] Comparison EKG date: [] Performed by: [self]Inverted T waves lead III Discharge Plan Discharge Chief Complaint: Dizziness Clinical Impression: Vertigo Patient Disposition: Home, Self-Care Time of Disposition Decision: 18:51 Condition: Good Mode of Transportation: Private Vehicle Prescriptions / Home Meds: New meclizine 25 mg tablet 25 mg PO TID PRN (Reason: dizziness or vertigo) Qty: 20 0RF No Action sertraline 50 mg tablet 50 mg PO DAILY famotidine [Pepcid] 20 mg tablet 20 mg PO DAILY Print Language: Macedonian Instructions: Vertigo (ED) Referrals: Tamra Owens NP [Primary Care Provider] - 1 week Discharge Date/Time: 11/17/23 19:22
[2023-11-17] MEDS: 0.9 % SODIUM CHLORIDE 1,000 ML 1000 ML IV (18:09)
[2023-11-17] MEDS: MECLIZINE HCL 12.5 MG TABLET 25 MG PO (18:10)
[2023-11-17] MEDS: ONDANSETRON PF 4 MG/2 ML VIAL IV (18:10)
--- NOTE | 2023-11-17 18:24 | CT_ITS ---
The [address] [address] Patient Name: DONA GUEVARA MRN: [id number] date: 1970 Sex: M Assigned Patient Location: ER Current Patient Location: ED.MAIN Accession/Order Number: [id number] Exam Date: 11/17/2023 18:21 Report Date: 11/17/2023 18:36 At the request of: BARBARA CORDOVA Procedure: CT head/brain wo con Exam: Radiographs: XR chest 1V, CT head/brain wo con Reason for exam: dizziness Comparison: Chest x-ray dated 05/27/2022 CT/CT head/brain wo con IMPRESSION: Unremarkable chest x-ray. EXAM: CT scan of the head without contrast. Dose reduction technique used: Automated exposure control and/or adjustment of the mA and/or kV according to patient size and/or use of iterative reconstruction technique. REASON FOR EXAM: dizziness COMPARISON: None FINDINGS: No intracranial hemorrhage, mass effect, midline shift, fractures or evidence of acute ischemic infarct. No hydrocephalus. Paranasal sinuses and mastoid air cells are clear. Remainder unremarkable. IMPRESSION: No acute intracranial abnormalities. Electronically authenticated by: [facility] RIOS Date: 11/17/2023 18:36
[2023-11-17 18:27] LABS: Alanine Aminotransferase 35 U/L (16-63); Albumin Globulin Ratio 1.1; Alkaline Phosphatase 104 U/L (46-116); Anion Gap 9.6; Aspartate Amino Transferase 14 U/L (15-37); BUN Creatinine Ratio 12.6; Bilirubin Total 0.5 mg/dL (0.2-1.0); Calcium 9.9 mg/dL (8.5-10.1); Carbon Dioxide 28.3 mmol/L (21.0-32.0); Chloride 102 mmol/L (98-107); Estimated GFR (African America >60 (>=60); Estimated GFR (Non-African Ame >60 (>=60); Globulin 3.6 g/dL; Glucose 110 mg/dL (74-106); Potassium 3.9 mmol/L (3.5-5.1); Sodium 136 mmol/L (136-145); Total Protein 7.6 g/dL (6.4-8.2)
[2023-11-17 18:29] LABS: Troponin I High Sensitivity 5.1 pg/mL (4.0-76.1)
[2023-11-17 18:54] LABS: Internal Control Within Normal Limits; SARS-CoV-2 Ag NEGATIVE (NEGATIVE)
== END 2023-11-17 19:22 | disposition home or self-care (01) ==
PROVIDERS: Emergency Provider Emergency Medicine; PCP Nurse Practitioner
DX: R42 Dizziness and giddiness (principal); Z20.822 Contact with and (suspected) exposure to COVID-19
CPT/HCPCS: 36415; 70450; 71045; 80053; 84484; 85025; 87811; 93005; 96361; 96374; 99285; J2405